=== PATIENT | female | born 1965 | race Caucasian/White ===

== ENCOUNTER 2022-08-01 09:22 | Outpatient (CLI) | payer OTHER, SELFPAY ==
[2022-08-01 14:47] LABS: Albumin* 4.8 g/dL (3.3-5.0)
[2022-08-01 14:48] LABS: Chloride* 101 mmol/L (96-114); Potassium* 4.3 mmol/L (3.6-5.1); Sodium* 137 mmol/L (135-149)
[2022-08-01 14:50] LABS: Carbon Dioxide* 30 mmol/L (20-32); Cholesterol* 186 mg/dL (90-199); Creatinine* 0.7 mg/dL (0.5-1.5); Estimated Glomerular Filt Rate 101 ml/min
[2022-08-01 14:51] LABS: Alanine Aminotransferase* 25 U/L (4-35); Alkaline Phosphatase* 65 U/L (40-150); Aspartate Amino Transferase* 29 U/L (12-35); Bilirubin Total* 0.4 mg/dL (0.1-1.5); Blood Urea Nitrogen* 13 mg/dL (7-30); Glucose* 85 mg/dL (60-115); HDL Cholesterol* 93 mg/dL (>=50); LDL Cholesterol Calculated 85 mg/dL (<100); Total Protein* 7.3 g/dL (6.0-8.3); Triglycerides* 39 mg/dL (40-149)
== END 2022-08-01 09:23 | disposition home or self-care (01) ==
PROVIDERS: PCP Physician Assistant Medical; Visit Provider Physician Assistant Medical
DX: Z00.00 Encounter for general adult medical examination without abnormal findings (principal); E78.5 Hyperlipidemia, unspecified; I10 Essential (primary) hypertension
CPT/HCPCS: 80053; 80061

== ENCOUNTER 2023-11-05 08:19 | Outpatient (CLI) | payer OTHER, SELFPAY | END 2023-11-05 08:20 | disposition home or self-care (01) | LOC: NFLDREF 11-07 07:56 | PROVIDERS: PCP Physician Assistant Medical; Referring Provider Physician Assistant Medical; Visit Provider Physician Assistant Medical | DX: E78.5 Hyperlipidemia, unspecified (principal); I10 Essential (primary) hypertension | CPT/HCPCS: 80053; 80061 ==

== ENCOUNTER 2024-01-08 08:32 | Outpatient (CLI) | payer OTHER, SELFPAY ==
--- NOTE | 2024-01-08 09:15 | MM_ITS ---
Patient: KENNEDY GLEASON Facility:?[facility] Patient ID:?[id number] Site Patient ID:?[id number] Site :?[id number] Study:?XRay-Breast Bilateral 3D W/CAD-01/08/2024 9:50:08 AM Ordering Physician:Abby Final Report: BILATERAL SCREENING MAMMOGRAM WITH COMPUTER-AIDED DETECTION AND TOMOSYNTHESIS TECHNIQUE: CC and MLO views were obtained. These mammographic images have been obtained using full-field digital technique. These mammographic images were interpreted with the benefit of computer-aided detection. Breast Tomosynthesis was used in this interpretation. COMPARISON FILM: 01/01/23, 12/18/21, 10/24/20. FINDINGS: There are scattered areas of fibroglandular density. IMPRESSION: There is no radiographic evidence for malignancy. ASSESSMENT: BI-RADS Category 1: Negative RECOMMENDATION: Routine screening mammogram in 1 year. A lay language report of this examination will be provided to the patient. Reynaldo Nava M.D. Diagnostic Radiologist [email or web address] DSM/sp R& Transcribed: 2:03 p.m. SP/Dictated by: Reynaldo Nava MD @ 01/08/2024 10:17:00 AM Signed by:?Reynaldo Nava MD @01/08/2024 3:10:50 PM (Electronic Signature)
== END 2024-01-08 08:33 | disposition home or self-care (01) ==
LOC: MAMMO 08:35
PROVIDERS: PCP Physician Assistant Medical; Visit Provider Physician Assistant Medical
DX: Z12.31 Encounter for screening mammogram for malignant neoplasm of breast (principal)
CPT/HCPCS: 77063; 77067

== ENCOUNTER 2024-01-08 09:31 | Outpatient (CLI) | payer OTHER, SELFPAY ==
--- NOTE | 2024-01-08 11:35 | W.ANESCHARGE ---
Anesthesia Charges Start Date/Time Anesthesia Start Date: 01/08/24 Anesthesia Start Time: 11:14 Stop Date/Time Anesthesia Stop Date: 01/08/24 Anesthesia Stop Time: 11:32
--- NOTE | 2024-01-08 12:02 | W.ANESCHARGE ---
Anesthesia Charges Start Date/Time Anesthesia Start Date: 01/08/24 Anesthesia Start Time: 11:14 Stop Date/Time Anesthesia Stop Date: 01/08/24 Anesthesia Stop Time: 11:32
== END 2024-01-08 09:32 | disposition home or self-care (01) ==
LOC: OP CLINIC 09:31
PROVIDERS: PCP Physician Assistant Medical; Visit Provider Surgery
DX: R13.10 Dysphagia, unspecified (principal); K22.89 Other specified disease of esophagus; K44.9 Diaphragmatic hernia without obstruction or gangrene
CPT/HCPCS: 00731; 43239; 88305; J2704; J3490

== ENCOUNTER 2024-03-12 08:41 | Outpatient (CLI) | payer OTHER, SELFPAY | END 2024-03-12 08:42 | disposition home or self-care (01) | LOC: NFLDREF 03-15 14:41 | PROVIDERS: PCP Physician Assistant Medical; Referring Provider Physician Assistant Medical; Visit Provider Physician Assistant Medical | DX: E78.5 Hyperlipidemia, unspecified (principal); I10 Essential (primary) hypertension; I25.10 Atherosclerotic heart disease of native coronary artery without angina pectoris | CPT/HCPCS: 80061; 80076 ==

== ENCOUNTER 2024-05-28 11:34 | Outpatient (CLI) | payer OTHER, SELFPAY | END 2024-05-28 11:35 | disposition home or self-care (01) | PROVIDERS: PCP Physician Assistant Medical; Visit Provider Family Medicine | DX: R06.09 Other forms of dyspnea (principal); I10 Essential (primary) hypertension; E78.5 Hyperlipidemia, unspecified | CPT/HCPCS: 80048; 84443 ==

== ENCOUNTER 2024-06-15 12:33 | Outpatient (CLI) | payer OTHER, SELFPAY ==
[2024-06-15] MEDS: PERFLUTREN LIPID MICROSPHERES 2 ML VIAL IVP (14:20)
[2024-06-15 14:26] VITALS: BP 144/84; PULSE 85; RESP 18
--- NOTE | 2024-06-15 15:18 | W.PM.STED ---
Stress Test Note Date Date of test: 06/15/24 Providers Primary care provider: Clara Rowan Stress test physician: Eduardo Berrios Stress Test Note Stress test ordered: Stress Echo Indication for test: Dyspnea Stress test medicine: Definity Results discussion: Patient is a very nice 59-year-old female presents for the above test after discussion the risks benefits and side effects of doing the stress echo if she would like to proceed, definity is used in this the echo portion. Cardiac stress test medical history form is reviewed, pretest EKG shows normal sinus rhythm with a ventricular rate of 66 and a blood pressure [address] on [address] No acute ST wave changes are noted. Standard Todd protocol is employed over a time course of 8 minutes 5 seconds, test is terminated because of shortness of breath and fatigue, she was achieved a metabolic equivalent of 9.7 Mets, with a maximum heart rate of 172 which is 124% of the maximum. During this test there is no specific ST wave changes suggestive of ischemia, there is no dysrhythmias, conditioning was felt to be good Impression: Negative electrographic portion of stress echo, conditioning was felt to be good, inducement of shortness of breath is noted. Follow up suggested: Await echo images, clinical correlation with this will be needed. Patient left this testing facility in good condition, there were no complication
== END 2024-06-15 14:00 | disposition home or self-care (01) ==
LOC: STRESS 12:34
PROVIDERS: PCP Physician Assistant Medical; Visit Provider Family Medicine
DX: R06.09 Other forms of dyspnea (principal); I25.10 Atherosclerotic heart disease of native coronary artery without angina pectoris
CPT/HCPCS: 93016; 93325; 93351; Q9957